=== PATIENT | female | born 1955 | race Caucasian/White ===

== ENCOUNTER 2018-02-26 09:42 | Observation (INO) ==
[2018-02-26] MEDS ORDERED: Aspirin 81 MG TAB.CHEW PO ONE (09:56)
--- NOTE | 2018-02-26 10:06 | Emergency Department Note ---
Disposition Clinical Impression: Chest pain Qualifiers: Chest pain type: unspecified Qualified Code(s): R07.9 - Chest pain, unspecified Disposition: Admitted As Inpatient Condition: Fair Forms: ED Satisfaction Letter Time of Disposition: 11:15 Chest Pain HPI - General Chief Complaint: ED Chest Pain Stated Complaint: CP Time Seen by Provider: 02/26/18 09:52 Source: patient Mode of arrival: wheelchair Limitations: no limitations Vital Signs Reviewed: Yes Nursing Notes Reviewed: Yes - History of Present Illness HPI Narrative: 62-year-old female who has a history of stent 2 last in 2014 comes in complaining of chest pain that went up into her jaw. Pt complaint: chest pain Onset (ago): [employer] Duration: intermittent, now resolved Onset: during rest Pain Location: substernal, left chest Severity scale (1-10): 8 Quality: tightness, aching Pain Radiation: jaw/teeth Improves with: other (Time) Worsens with: nothing Context: other (History of stents) Associated symptoms: Reports: other (None) Treatments prior to arrival chest pain: none - Related Data Home Medications Medication Instructions Recorded Confirmed Aspirin 81 mg PO DAILY 11/14/17 11/14/17 Clopidogrel [Plavix] 75 mg PO DAILY 11/14/17 11/14/17 Levothyroxine Sodium 50 mcg PO 0630 11/14/17 11/14/17 Metoprolol [Lopressor] 25 mg PO BID 11/14/17 11/14/17 Omeprazole [PriLOSEC] 20 mg PO DAILY 11/14/17 11/14/17 Rosuvastatin Calcium [Rosuvastatin 20 mg PO DAILY 11/14/17 11/14/17 Calcium] Allergies Allergy/AdvReac Type Severity Reaction Status Date / Time No Known Allergies Allergy Verified 11/14/17 07:49 All systems ED: reviewed and negative except as stated. Constitutional: Denies: fever, chills, weakness, weight change Eyes: Denies: eye pain, eye discharge, vision change ENT ED: Denies: ear pain, throat pain, dental pain, hearing loss, epistaxis, congestion, dysphagia Cardiovascular: Reports: chest pain. Denies: palpitations, dyspnea on exertion , edema, syncope Respiratory: Denies: cough, dyspnea, wheezes, hemoptysis, stridor Gastrointestinal: Denies: abdominal pain, nausea, vomiting, diarrhea, constipation, hematemesis, melena, hematochezia Genitourinary: Denies: dysuria, frequency, hematuria, discharge Musculoskeletal: Denies: back pain, neck pain, arthralgia, myalgia Integumentary: Denies: rash, abrasion, lesions Neurological: Denies: headache, weakness, numbness, paresthesias, confusion, abnormal gait, vertigo Psychiatric: Denies: anxiety, depression, suicidal thoughts, homicidal thoughts , auditory hallucinations, visual hallucinations Endocrine: Denies: fatigue Hematological/Lymphatic: Denies: easy bleeding, easy bruising Allergic/Immunologic: Denies: facial swelling, urticaria Chest Pain PMH - Past Medical History Medical history: Reports: coronary artery disease, GERD, hyperlipidemia, hypertension, thyroid disease Surgical history: Reports: angioplasty/stent, Psychiatric history: Reports: no psych history - Social History Smoking Status: Never smoker Alcohol use: Reports: none Drug use: Reports: none Physical Exam - General Limitations: no limitations General appearance: alert, in no apparent distress - Head Head exam: atraumatic, normocephalic, normal inspection - Eye Eye exam: Present: normal appearance, PERRL, EOMI - ENT ENT exam: normal exam, normal oropharynx, mucous membranes moist - Neck Neck exam: Present: normal inspection, full ROM, trachea midline - Chest Chest inspection: Present: normal inspection, symmetric chest wall rise - Respiratory Respiratory exam: Present: normal lung sounds bilaterally - Cardiovascular Cardiovascular exam: Present: regular rate, normal rhythm, normal heart sounds - Abdominal Exam Abdominal exam: Present: soft, Non-Tender. Absent: tenderness, distention, guarding, rebound, rigidity - Extremities Exam Extremities exam: Present: normal inspection, full ROM. Absent: tenderness, pedal edema - Expanded Lower Extremity Exam Neurovascular/Tendon exam: Absent: motor deficit, sensory deficit, tendon deficit Gait: observed and normal - Back Exam Back exam: Present: normal inspection, full ROM. Absent: tenderness - Neurological Exam Neurological exam: Present: alert, oriented X3 - Psychiatric Psychiatric exam: Present: normal affect, normal mood - Skin Skin exam: Present: warm, dry, intact, normal color Course - Reevaluation(s) Reevaluation #1: 62-year-old with a history of previous stents comes in complaining of chest pain and her jaw. Currently pain-free. Initial troponin is negative. Time: 11:15 - Consultations Consultation #1: Discussed with , admit. Time: 11:16 Vital Signs Temperature 98.2 F 02/26/18 09:43 Pulse Rate 59 02/26/18 09:43 Respiratory Rate 17 02/26/18 09:43 Blood Pressure 155/87 02/26/18 09:43 O2 Sat by Pulse Oximetry 99 02/26/18 09:43 Temperature 98.2 F 02/26/18 10:00 Pulse Rate 59 02/26/18 10:00 Respiratory Rate 17 02/26/18 10:00 Blood Pressure 155/87 02/26/18 10:00 O2 Sat by Pulse Oximetry 99 02/26/18 10:00 Oxygen Delivery Oxygen Delivery Room Air Chest Pain - Lab Data Lab results reviewed: Yes I reviewed the patient's lab results. Result diagrams: 02/26/18 10:06 Lab Results 02/26/18 02/26/18 Range/Units 09:56 10:06 PT 10.6 (9.4-12.1) Seconds INR 1.0 APTT 26.8 (26.0-36.0) Seconds D-Dimer 388 (0-500) ng/mLFEU Sodium 141 (136-145) mEq/L Potassium 3.8 (3.5-5.1) mEq/L Chloride 109 H (98-107) mEq/L Carbon Dioxide 25 (23-29) mEq/L BUN 14 (8-23) mg/dL Creatinine 0.80 (0.60-1.20) mg/dL Est GFR ( Amer) > 60 (> 60) Est GFR (Non-Af Amer) > 60 (> 60) BUN/Creatinine Ratio 18 (6-26) Glucose 96 (70-105) mg/dL Calculated Osmolality 292 (280-300) Calcium 8.6 (8.6-10.3) mg/dL Troponin I < 0.03 (< 0.04) ng/mL - Radiology Data Radiology results reviewed: Yes I reviewed the patient's radiology results. Chest X-Ray 02/26/18 09:56 IMPRESSION: Normal chest x-ray D/ / Doyle Garcia MD / Doyle Garcia MD Interpreting Provider: Doyle Garcia MD Heart Score - Score History: Moderately Suspicious EKG: Non Specific repolarisation Disturbance Age: 45-65 Risk Factors: Equal/Greater than 3 risk factor or history of atherosclerotic disease Troponin: Less than normal limit HEART Score Total: 5
[2018-02-26 10:49] LABS: Prothrombin Time 10.6 Seconds (9.4-12.1)
[2018-02-26 10:51] LABS: Activated Partial Thrombo Time 26.8 Seconds (26.0-36.0)
[2018-02-26 11:03] LABS: Troponin I < 0.03 ng/mL (< 0.04)
[2018-02-26 11:10] LABS: BUN/Creatinine Ratio 18 (6-26); Blood Urea Nitrogen 14 mg/dL (8-23); Calcium 8.6 mg/dL (8.6-10.3); Carbon Dioxide 25 mEq/L (23-29); Chloride 109 mEq/L (98-107); Glucose 96 mg/dL (70-105); Osmolality,Calculated 292 (280-300); Potassium 3.8 mEq/L (3.5-5.1); Sodium 141 mEq/L (136-145); eGFR For African Americans > 60 (> 60); eGFR For Non-African Americans > 60 (> 60)
[2018-02-26] MEDS ORDERED: Naloxone 0.4 MG/ML INJ IVP PRN (11:11)
[2018-02-26] MEDS ORDERED: *HR* HYDROcodone/Acet 5/325 mg TABLET PO PRN (11:11)
[2018-02-26 11:16] LABS: Basophils % 0.5 %; Eosinophils # 0.2 K/mcL (0.0-0.6); Eosinophils % 2.8 %; Hematocrit 33.9 % (35.3-44.9); Hemoglobin 11.3 g/dL (11.5-15.4); Immature Granulocytes % 0.2 % (0-4); Lymphocytes # 1.3 K/mcL (0.6-4.6); Lymphocytes % 19.1 %; Mean Corpuscular HGB Conc 33.3 g/dL (31.6-35.5); Mean Corpuscular Hemoglobin 29.6 pg (28.0-33.3); Mean Corpuscular Volume 88.7 fL (83.0-100.0); Mean Platelet Volume 10.4 fL (9.4-12.4); Monocytes # 0.5 K/mcL (0.0-1.3); Monocytes % 6.9 %; Neutrophils # 4.6 K/mcL (1.6-8.9); Platelet Count 189 K/mcL (140-400); Red Blood Count 3.82 M/mcL (3.82-4.97); Red Cell Distribution Width 13.2 % (11.5-14.5); Segmented Neutrophils % 70.5 %
[2018-02-26] MEDS ORDERED: Nitroglycerin 0.4 MG TAB.SUBL SL PRN (11:16)
--- NOTE | 2018-02-26 11:27 | Internal Med History&Physical ---
Date of Encounter: 02/26/18 Time of Encounter: 11:24 Internal Medicine - H&P: HPI Chief complaint: chest pain Admitted From: Emergency Dept Plans for Post Hospital Care: Home History of present illness: Ms. Stafford is a 62 year old female hypertension, dyslipidemia, hypothyroidism, coronary artery disease. 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 At that point patient suddenly had excruciating left sided precordial and substernal chest pain which was radiating to her jaw. The pain lasted for altogether less than 5 minutes. But this pain was excruciating and reminded her that it was like a similar to the pain at the time when she had a previous cardiac episode. Patient was evaluated by the school nurse and noted that her blood pressure was within acceptable range. Patient went to her house and to the nitroglycerin. patient denies shortness was, nausea, vomiting, and dizziness or diarrhea. Workup in the emergency room: Patient was evaluated in the emergency room. Basic labs were drawn. EKG was done. Chest x-ray was done. Reason for admission: Heart score 3, chest pain to rule out ACS. Family history: Significant family history for early coronary artery disease on either side of the parents. Past Med Surg Social Fam HX - Past Medical History Medical history: coronary artery disease, GERD, hyperlipidemia, hypertension, thyroid disease Psychiatric history: no psych history - Past Surgical History Surgical History: angioplasty/stent, - Social History Smoking Status: Never smoker Smokeless Tobacco Status: No Alcohol use: none Drug use: none Internal Medicine - H&P: Meds Aspirin 81 mg PO DAILY 11/14/17 [History] Clopidogrel [Plavix] 75 mg PO DAILY 11/14/17 [History] Levothyroxine Sodium 50 mcg PO 0630 11/14/17 [History] Metoprolol [Lopressor] 25 mg PO BID 11/14/17 [History] Omeprazole [PriLOSEC] 20 mg PO DAILY 11/14/17 [History] Rosuvastatin Calcium [Rosuvastatin Calcium] 20 mg PO DAILY 11/14/17 [History] 3 Allergy/AdvReac Type Severity Reaction Status Date / Time No Known Allergies Allergy Verified 11/14/17 07:49 All Systems PM: A 10-system review of systems was performed and is negative for pertinent findings except as documented above in the HPI. - Constitutional Constitutional: no chills, no fever(s), no night sweats - EENT Eyes: no change in vision, no discharge, no pain, no photophobia Ears: no ear discharge, no ear pain, no tinnitus Nose, mouth and throat: no dysphagia, no nasal discharge, no neck pain, no sore throat - Cardiovascular Cardiovascular ROS IM: chest pain, no diaphoresis, no dyspnea, no lightheadedness, no palpitations, no syncope - Respiratory Respiratory: no cough, no dyspnea, no wheezing, no excessive phlegm production - Gastrointestinal Gastrointestinal: no abdominal pain, no diarrhea, no hematemesis, no hematochezia, no melena, no nausea, no vomiting - Genitourinary Genitourinary: no change in urinary stream, no dysuria, no flank pain, no hematuria - Musculoskeletal Musculoskeletal ROS IM: no numbness, no tingling - Integumentary Integumentary IM: no rash, no unusual bruising - Neurological Neurological ROS: no confusion, no convulsions, no focal weakness, no numbness, no tingling, no tremor(s) - Hematologic/Lymphatic Hematologic/Lymphatic: no easy bruising - Constitutional Vitals: Temp Pulse Resp BP Pulse Ox 98.2 F 59 17 155/87 99 02/26/18 10:00 02/26/18 10:02/26/18 10:00 02/26/18 10:02/26/18 10:00 General appearance: Present: A&O X 3, pleasant, no acute distress, answers questions appropriately - Head Head exam: Present: atraumatic, normocephalic - Eye Eye exam: Present: PERRL, conjuntiva pink, sclera anicteric Pupils: Present: PERRL - Neck Neck exam general surgery: Present: supple, trachea midline. Absent: lymphadenopathy - Respiratory Respiratory exam: Present: CTAB. Absent: accessory muscle use, rales, rhonchi, wheezes - Cardiovascular Cardiovascular exam: Present: RRR, +S1, +S2. Absent: diastolic murmur, gallop, rubs, systolic murmur - GI/Abdominal GI/Abdominal exam: Present: normal bowel sounds, soft, no peritoneal signs. Absent: distended, tenderness - Extremities Exam Extremities exam: Present: warm, radial pulses palpable and symmetrical. Absent : calf tenderness, cyanotic, pedal edema - Neurological Exam Neurological exam: Present: CN II-XII intact, oriented X3, no focal deficits. Absent: pronater drift, facial droop, speech deficit - Skin Skin exam: Present: dry, intact Internal Med - H&P Results - Labs CBC & Chem 7: 02/26/18 10:06 02/26/18 10:06 Labs: Short CBC 02/26/18 Range/Units 10:06 WBC 6.5 (4.3-11.1) K/mcL Hgb 11.3 L (11.5-15.4) g/dL Hct 33.9 L (35.3-44.9) % Plt Count 189 (140-400) K/mcL Neutrophils # 4.6 (1.6-8.9) K/mcL BMP 02/26/18 10:06 Sodium 141 Potassium 3.8 Chloride 109 H Carbon Dioxide 25 BUN 14 Creatinine 0.80 Glucose 96 Calcium 8.6 Cardiac Enzymes 02/26/18 Range/Units 10:06 Troponin I < 0.03 (< 0.04) ng/mL - Impressions ITS Impressions Chest X-Ray 02/26/18 09:56 IMPRESSION: Normal chest x-ray D/ / Doyle Garcia MD / Doyle Garcia MD Interpreting Provider: Doyle Garcia MD - Assessment and plan (1) Chest pain Current Visit: Yes Status: Acute Assessment and plan: 62/female Admitted with chest pain. Heart score: 3. Plan: Admit as observation. Aspirin/metoprolol/Crestor. Resume home medications. Cycle troponin. Echocardiogram. Cardiac diet for now but nothing by mouth from midnight. If 3 troponins negative/echocardiogram normal: Please consider stress test. I examined this patient in the emergency room #26 Along with the patient's RN was present during the examination. Plan of care explained to the patient at length. Patient verbalized understanding. Qualifiers: Chest pain type: precordial pain Qualified Code(s): R07.2 - Precordial pain (2) Coronary artery disease Current Visit: Yes Status: Acute Assessment and plan: Patient is known to have coronary artery disease. patient had a forced stent placed in 2008. patient had a stent in stent placed 2 years back. Qualifiers: Coronary Disease-Associated Artery/Lesion type: [place] artery [place] vs. transplanted heart: [place] heart Associated angina: without angina Qualified Code(s): I25.10 - Atherosclerotic heart disease of [place] coronary artery without angina pectoris (3) Hypertension Current Visit: Yes Status: Acute Assessment and plan: Patient is known to have a hypertension. We will resume the home medication. Patient's blood pressure is within acceptable range. At that patient recently started lisinopril. Its not mentioned on her med chart. If the blood pressure is uncontrolled then consider adding lisinopril Qualifiers: Hypertension type: essential hypertension Qualified Code(s): I10 - Essential (primary) hypertension (4) Hypothyroidism Current Visit: Yes Status: Acute Assessment and plan: Patient is known to have a hypothyroidism. We will resume the home medication. Qualifiers: Hypothyroidism type: unspecified Qualified Code(s): E03.9 - Hypothyroidism , unspecified (5) DVT prophylaxis Current Visit: Yes Status: Acute Assessment and plan: Heparin Medical decision making: This patient has a moderate to severe risk of worsening in spite of being on appropriate medication due to the underlying complex comorbid conditions. - Time Spent With Patient Total time spent is greater than 50% in coordination of care (as documented) at patient's floor/unit and/or counseling patient:
[2018-02-26] MEDS: *HR* Heparin 5,000 UNIT/ML VIAL SQ SCH ×2 (13:24→22:29)
[2018-02-27 05:16] LABS: Basophils % 0.4 %; Eosinophils # 0.2 K/mcL (0.0-0.6); Eosinophils % 4.4 %; Hematocrit 33.6 % (35.3-44.9); Hemoglobin 11.2 g/dL (11.5-15.4); Immature Granulocytes % 0.2 % (0-4); Lymphocytes # 1.4 K/mcL (0.6-4.6); Lymphocytes % 29.2 %; Mean Corpuscular HGB Conc 33.3 g/dL (31.6-35.5); Mean Corpuscular Hemoglobin 29.2 pg (28.0-33.3); Mean Corpuscular Volume 87.7 fL (83.0-100.0); Monocytes # 0.4 K/mcL (0.0-1.3); Monocytes % 7.6 %; Neutrophils # 2.8 K/mcL (1.6-8.9); Platelet Count 166 K/mcL (140-400); Red Blood Count 3.83 M/mcL (3.82-4.97); Red Cell Distribution Width 13.2 % (11.5-14.5); Segmented Neutrophils % 58.2 %
[2018-02-27 05:22] LABS: Prothrombin Time 10.9 Seconds (9.4-12.1)
[2018-02-27 05:24] LABS: Activated Partial Thrombo Time 27.7 Seconds (26.0-36.0)
[2018-02-27 05:37] LABS: Alanine Aminotransferase 13 Units/L (7-52); Albumin 3.7 g/dL (3.5-5.7); Albumin/Globulin Ratio 1.5 (1.1-2.2); Alkaline Phosphatase 104 Units/L (34-104); Aspartate Amino Transferase 15 Units/L (13-39); BUN/Creatinine Ratio 13 (6-26); Bilirubin,Total 0.4 mg/dL (0.3-1.0); Blood Urea Nitrogen 10 mg/dL (8-23); Calcium 8.5 mg/dL (8.6-10.3); Carbon Dioxide 27 mEq/L (23-29); Chloride 110 mEq/L (98-107); Chol/HDL Ratio 2.6 (0-4.9); Cholesterol 136 mg/dL (< 200); Globulin 2.4 g/dL (2.4-3.5); Glucose 95 mg/dL (70-105); HDL Cholesterol 53 mg/dL (40-59); LDL Cholesterol,Calculated 64 mg/dL (0-99); Magnesium 1.8 mg/dL (1.6-2.6); Osmolality,Calculated 291 (280-300); Phosphorous 3.3 mg/dL (2.7-4.5); Potassium 3.8 mEq/L (3.5-5.1); Sodium 141 mEq/L (136-145); Total Protein 6.1 g/dL (6.4-8.9); Triglycerides 93 mg/dL (< 150); eGFR For African Americans > 60 (> 60); eGFR For Non-African Americans > 60 (> 60)
[2018-02-27] MEDS: *HR* Heparin 5,000 UNIT/ML VIAL SQ SCH ×2 (05:41→13:53)
[2018-02-27 07:01] VITALS: BP 116/63
[2018-02-27] MEDS ORDERED: Aspirin 81 MG TAB.CHEW PO SCH (09:00)
--- NOTE | 2018-02-27 11:05 | Internal Med Progress Note ---
Date of Encounter: 02/27/18 Time of Encounter: 11:05 - Assessment and plan (1) Chest pain Current Visit: Yes Status: Acute Qualifiers: Chest pain type: precordial pain Qualified Code(s): R07.2 - Precordial pain (2) Hypertension Current Visit: Yes Status: Acute Qualifiers: Hypertension type: essential hypertension Qualified Code(s): I10 - Essential (primary) hypertension (3) Hypothyroidism Current Visit: Yes Status: Acute Qualifiers: Hypothyroidism type: unspecified Qualified Code(s): E03.9 - Hypothyroidism , unspecified (4) DVT prophylaxis Current Visit: Yes Status: Acute (5) Coronary artery disease Current Visit: Yes Status: Acute Qualifiers: Coronary Disease-Associated Artery/Lesion type: [place] artery [place] vs. transplanted heart: [place] heart Associated angina: without angina Qualified Code(s): I25.10 - Atherosclerotic heart disease of [place] coronary artery without angina pectoris - Time Spent With Patient Total time spent is greater than 50% in coordination of care (as documented) at patient's floor/unit and/or counseling patient: - Constitutional Vitals: Temp Pulse Resp BP Pulse Ox 97.7 F 55 17 116/63 99 02/27/18 06:58 02/27/18 06:58 02/27/18 06:58 02/27/18 06:58 02/27/18 06:58 General appearance: Present: A&O X 3, pleasant, no acute distress, answers questions appropriately Internal Medicine: Result - Labs CBC & Chem 7: 02/27/18 04:56 02/27/18 04:56 Labs: Short CBC 02/27/18 Range/Units 04:56 WBC 4.7 (4.3-11.1) K/mcL Hgb 11.2 L (11.5-15.4) g/dL Hct 33.6 L (35.3-44.9) % Plt Count 166 (140-400) K/mcL Neutrophils # 2.8 (1.6-8.9) K/mcL BMP 02/27/18 04:56 Sodium 141 Potassium 3.8 Chloride 110 H Carbon Dioxide 27 BUN 10 Creatinine 0.76 Glucose 95 Calcium 8.5 L Cardiac Enzymes 02/26/18 02/26/18 02/27/18 Range/Units 15:59 22:05 04:56 Troponin I < 0.03 < 0.03 < 0.03 (< 0.04) ng/mL Liver Function 02/27/18 Range/Units 04:56 Total Bilirubin 0.4 (0.3-1.0) mg/dL AST 15 (13-39) Units/L ALT 13 (7-52) Units/L Alkaline Phosphatase 104 (34-104) Units/L Albumin 3.7 (3.5-5.7) g/dL - ABG Interpretation ABG results: PT/INR, D-dimer PT 10.9 Seconds (9.4-12.1) 02/27/18 04:56 D-Dimer 388 ng/mLFEU (0-500) 02/26/18 09:56 Consult Discharge Plan - Plan Referrals: Finesse Andrade DO [Primary Care Provider] - 03/06/18 2:00 pm
[2018-02-27] MEDS ORDERED: Regadenoson 0.4 MG/5 ML SYRINGE IVP ONE (12:03)
--- NOTE | 2018-02-27 14:58 | Discharge Summary ---
Orders not resulted at time of discharge: Pending orders 02/27/18 11:01 NM [place] perf SPECT multi [NM] Routine Date of Encounter: 02/27/18 Time of Encounter: 15:15 - Discharge Diagnosis (1) Chest pain Priority: Primary Status: Acute Qualifiers: Chest pain type: precordial pain Qualified Code(s): R07.2 - Precordial pain (2) Hypertension Priority: Secondary Status: Acute Qualifiers: Hypertension type: essential hypertension Qualified Code(s): I10 - Essential (primary) hypertension (3) Hypothyroidism Priority: Secondary Status: Acute Qualifiers: Hypothyroidism type: unspecified Qualified Code(s): E03.9 - Hypothyroidism , unspecified (4) Coronary artery disease Priority: Secondary Status: Acute Qualifiers: Coronary Disease-Associated Artery/Lesion type: [place] artery [place] vs. transplanted heart: [place] heart Associated angina: without angina Qualified Code(s): I25.10 - Atherosclerotic heart disease of [place] coronary artery without angina pectoris Hospital course: Ms. Stafford is a 62 year old female past medical history of hypertension dyslipidemia hypothyroid coronary disease. Patient has sudden onset of excruciating left-sided precordial and substernal chest pain which radiated to her jaw. The pain lasts approximately 5 minutes with associated symptoms of diaphoresis. 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 She did take a nitroglycerin which did ease her pain. She presented to the emergency department troponins were negative cycle 3 which were all negative. EKG with no ST-T wave abnormalities. Chest x-ray with no acute process. Echocardiogram LV EF 60% normal left ventricular diastolic normal right ventricular structure and function mild to moderate aortic regurgitation no pulmonary hypertension. Patient did undergo nonexercise nuclear stress which was negative for any ischemia or infarct. Patient's vital signs are stable she denies any chest pain at this time I did advise patient to follow-up with her real estate loan officer as well as her primary care physician since these providers know her past and can adjust medications accordingly. Patient verbalized understanding. Patient is to be discharged home Discharge discussed with: patient - Time Spent with Patient Total time spent providing and/or coordinating discharge services: - Discharge Medications Home Medications: Aspirin 81 mg PO DAILY 11/14/17 [History] Clopidogrel [Plavix] 75 mg PO DAILY 11/14/17 [History] Levothyroxine Sodium 50 mcg PO 0630 11/14/17 [History] Metoprolol [Lopressor] 25 mg PO BID 11/14/17 [History] Omeprazole [PriLOSEC] 20 mg PO DAILY 11/14/17 [History] Rosuvastatin Calcium 20 mg PO DAILY 11/14/17 [History] Allergies/Adverse Reactions: 3 Allergy/AdvReac Type Severity Reaction Status Date / Time No Known Allergies Allergy Verified 11/14/17 07:49 Date of admission: 02/26/18 11:30 Primary care physician: Finesse Andrade Discharging clinician: Yana Cody Anticipated date of discharge: 02/27/18 - Constitutional Vitals: Temp Pulse Resp BP Pulse Ox 97.7 F 55 17 116/63 99 02/27/18 06:58 02/27/18 06:58 02/27/18 06:58 02/27/18 06:58 02/27/18 06:58 General appearance: Present: A&O X 3, pleasant, no acute distress, answers questions appropriately - Head Head exam: Present: atraumatic, normocephalic - Eye Eye exam: Present: PERRL, conjuntiva pink, sclera anicteric Pupils: Present: PERRL - Neck Neck exam general surgery: Present: supple, trachea midline. Absent: lymphadenopathy - Respiratory Respiratory exam: Present: CTAB. Absent: accessory muscle use, rales, rhonchi, wheezes - Cardiovascular Cardiovascular exam: Present: RRR, +S1, +S2. Absent: diastolic murmur, gallop, rubs, systolic murmur - GI/Abdominal GI/Abdominal exam: Present: normal bowel sounds, soft, no peritoneal signs. Absent: distended, tenderness - Extremities Exam Extremities exam: Present: warm, radial pulses palpable and symmetrical. Absent : calf tenderness, cyanotic, pedal edema - Neurological Exam Neurological exam: Present: CN II-XII intact, oriented X3, no focal deficits. Absent: pronater drift, facial droop, speech deficit - Skin Skin exam: Present: dry, intact - Patient Status Disposition: Home, Self-Care Condition: Fair Overall status at discharge: patient is back to baseline - Discharge Instructions Instructions: Chest Pain (DC), Chronic Hypertension (DC) Follow Up With: Nirmala Rubi MD [Partnered Physician] - (Our office will call you with an appointment time and date. If you do not hear from us within 2-3 days please call [phone]. Thank You. ) Finesse Andrade, [Primary Care Provider] - 03/06/18 2:00 pm - Diet and Activity Activity: increase activity as tolerated Diet: advance to your usual diet
--- NOTE | 2018-02-27 16:27 | Electrocardiograph Report ---
[address] [place] [address] Test Date: 2018-02-26 Pat Name: Nita Stafford Department: 104 Room: 3B23 Gender: F Personal Coach: QUAN : 1955 Requested By: Dex Fonseca Order Number: [id number] Reading MD: Nalini Hannon Measurements Intervals [place] Rate: 51 P: 31 VA: 149 QRS: -16 QRSD: 87 T: 7 QT: 449 QTc: 427 Interpretive Statements SINUS BRADYCARDIA Electronically Signed On 02-27-2018 16:25:52 EDT by Nalini Hannon
== END 2018-02-27 15:27 | disposition home or self-care (01) ==
LOC: 3BNU 09:42 → EMEROO 09:42 → 3BNU 12:07
PROVIDERS: ADMIT Internal Medicine; ATTEND Internal Medicine